=== PATIENT | male | born 1935 | race Caucasian/White ===

== ENCOUNTER 2016-06-26 10:02 | Outpatient (CLI) | payer MEDICARE ==
[2016-06-26 10:26] LABS: Bilirubin Negative (Negative); Blood, Urine Negative (Negative); Glucose, Urine (Dipstick) Negative (Negative); Ketone, Urine Negative (Negative); Nitrite Negative (Negative); Protein, Urine (Dipstick) Trace mg/dL (Neg-Trace); Urobilinogen 0.2 mg/dL (0.2-1.0)
[2016-06-26 10:32] LABS: #Basophils 0.1 thou/uL (0.0-0.2); #Eosinphils 0.1 thou/uL (0.0-0.7); #Lymphocytes 1.3 thou/uL (1.20-3.40); #Monocytes 0.6 thou/uL (0.11-0.59); #Neutrophils 2.8 thou/uL (1.40-6.50); %Basophils 1.4 % (0.0-1.0); %Eosinophils 2.4 % (0.0-10.0); %Monocytes 11.8 % (0.0-10.0); Bacteria/HPF None Seen HPF (None Seen); Hematocrit 40.2 % (42.0-52.0); Mean Platelet Volume 10.9 fL (7.4-10.4); RBC/HPF None Seen HPF (0-3); Red Blood Cell (RBC) Count 4.56 mill/uL (4.70-6.10); Squamous Epithelial 0-3 HPF (0-3); WBC/HPF None Seen HPF (0-3); White Blood Cell (WBC) Count 4.9 thou/uL (4.8-10.8)
[2016-06-26 11:08] LABS: Hemoglobin A1c 6.6 % (4.0-6.0)
[2016-06-26 11:23] LABS: ALT (SGPT) 17 U/L (0-55); AST (SGOT) 18 U/L (5-34); Alkaline Phosphatase 90 U/L (40-150); Anion Gap 14 mmol/L (10-20); BUN (Urea Nitrogen) 15 mg/dL (8.4-25.7); Bilirubin, Total 0.5 mg/dL (0.2-1.2); Calc. Creatinine Clearance 0 mL/min (70-130); Calcium 9.3 mg/dL (7.8-10.44); Carbon Dioxide 24 mmol/L (23-31); Chloride 106 mmol/L (98-107); Estimated GFR-MDRD 68; LDL Cholesterol, Calculated 43 mg/dL; Protein, Total 7.3 g/dL (5.8-8.1)
[2016-06-26 17:32] LABS: Iron 60 ug/dL (65-175)
[2016-06-26 17:51] LABS: Microalbumin Urine 4.6 mg/dL (0.5-50.0)
== END 2016-06-26 10:03 | disposition home or self-care (01) ==
LOC: BURLAB 10:02
PROVIDERS: ATTEND Internal Medicine
DX: D64.9 Anemia, unspecified (principal); E11.29 Type 2 diabetes mellitus with other diabetic kidney complication
CPT/HCPCS: 36415; 80053; 80061; 81001; 82043; 82728; 83036; 83540; 83550; 85025

== ENCOUNTER 2016-10-19 09:10 | Outpatient (CLI) | payer MEDICARE ==
[2016-10-19 10:12] LABS: ALT (SGPT) 18 U/L (8-55); AST (SGOT) 19 U/L (5-34); Albumin 4.2 g/dL (3.4-4.8); Alkaline Phosphatase 86 U/L (40-150); Anion Gap 14 mmol/L (10-20); BUN (Urea Nitrogen) 14 mg/dL (8.4-25.7); Bilirubin, Total 0.3 mg/dL (0.2-1.2); Calc. Creatinine Clearance 0 mL/min (70-130); Carbon Dioxide 26 mmol/L (23-31); Cardiac Risk 3.5 (Less than 4.5); Chloride 104 mmol/L (98-107); Cholesterol 104 mg/dl (< 200 Desired); Estimated GFR-MDRD 71; Glucose 155 mg/dL (83-110); HDL Cholesterol 30 mg/dL (>60 Neg Risk); Hemoglobin A1c 6.3 % (4.0-6.0); LDL Cholesterol, Calculated 47 mg/dL; Potassium 4.1 mmol/L (3.5-5.1); Protein, Total 7.2 g/dL (5.8-8.1); Sodium 140 mmol/L (136-145); Triglycerides 133 mg/dL (Less than 150)
[2016-10-19 18:51] LABS: Creatinine, Urine 76.68 mg/dL (63-166); Microalbumin Urine 8.4 mg/dL (0.5-50.0); Microalbumin/Creat Ratio 109.5 mg/g (Less than 30)
== END 2016-10-19 09:11 | disposition home or self-care (01) ==
LOC: BURLAB 09:10
PROVIDERS: ATTEND Internal Medicine
DX: E11.29 Type 2 diabetes mellitus with other diabetic kidney complication (principal); E78.5 Hyperlipidemia, unspecified
CPT/HCPCS: 36415; 80053; 80061; 82043; 83036

== ENCOUNTER 2020-09-16 14:21 | Emergency (ER) | payer MEDICARE ==
[2020-09-16] MEDS ORDERED: TETANUS, DIPHTHERIA TOX,ADULT (TDVAX) 0.5 ML VIAL IM ONE (15:06)
[2020-09-16] MEDS ORDERED: Ciprofloxacin 500 MG TAB ONE (15:06)
[2020-09-16] MEDS ORDERED: Bacitracin 1 PK ONE (15:11)
[2020-09-16] MEDS ORDERED: Ketorolac Tromethamine 30 MG/ML VIAL ONE (15:16)
== END 2020-09-16 15:22 | disposition home or self-care (01) ==
LOC: BURERS 14:21
DX: S91.331A Puncture wound without foreign body, right foot, initial encounter (principal); E11.9 Type 2 diabetes mellitus without complications; I10 Essential (primary) hypertension; Z79.899 Other long term (current) drug therapy; Z79.82 Long term (current) use of aspirin; Z79.84 Long term (current) use of oral hypoglycemic drugs; Z23 Encounter for immunization; W45.0XXA Nail entering through skin, initial encounter
CPT/HCPCS: 90471; 90714; 96372; J1885

== ENCOUNTER 2021-11-21 09:45 | Outpatient (CLI) | payer MEDICARE ==
[2021-11-21 10:08] LABS: #Basophils 0.1 thou/uL (0.0-0.2); #Eosinphils 0.1 thou/uL (0.0-0.7); #Lymphocytes 1.4 thou/uL (1.20-3.40); #Monocytes 0.4 thou/uL (0.11-0.59); #Neutrophils 2.5 thou/uL (1.40-6.50); %Basophils 1.7 % (0.0-1.0); %Neutrophils 55.3 % (42.0-75.0); Hemoglobin 12.7 g/dL (14.0-18.0); Mean Corpuscular HGB CONC 33.2 g/dL (32.0-36.0); Mean Corpuscular Hemoglobin 29.4 pg (27.0-31.0); Mean Corpuscular Volume 88.7 fL (78.0-98.0); Platelet Count 124 thou/uL (130-400); RBC Distribution Width 14.1 % (11.5-14.5); Red Blood Cell (RBC) Count 4.31 mill/uL (4.70-6.10); White Blood Cell (WBC) Count 4.4 thou/uL (4.8-10.8)
[2021-11-21 10:19] LABS: ALT (SGPT) 12 U/L (8-55); AST (SGOT) 15 U/L (5-34); Albumin 3.9 g/dL (3.4-4.8); Alkaline Phosphatase 86 U/L (40-110); Anion Gap 11 mmol/L (10-20); BUN (Urea Nitrogen) 16 mg/dL (8.4-25.7); Bilirubin, Total 0.4 mg/dL (0.2-1.2); Calc. Creatinine Clearance 0 mL/min (70-130); Calcium 9.4 mg/dL (7.8-10.44); Carbon Dioxide 29 mmol/L (23-31); Chloride 105 mmol/L (98-107); Cholesterol 95 mg/dl (< 200 Desired); Estimated GFR 63; Glucose 124 mg/dL (83-110); HDL Cholesterol 32 mg/dL (>60 Neg Risk); LDL Cholesterol, Calculated 47 mg/dL; Potassium 4.6 mmol/L (3.5-5.1); Protein, Total 6.9 g/dL (5.8-8.1); Sodium 140 mmol/L (136-145); Triglycerides 79 mg/dL (Less than 150)
[2021-11-21 17:19] LABS: Hemoglobin A1c 6.2 % (4.0-6.0)
[2021-11-21 17:37] LABS: Creatinine, Urine 110.36 mg/dL (63-166); Microalbumin Urine 7.2 mg/dL (0.5-50.0); Microalbumin/Creat Ratio 65.2 mg/g (Less than 30)
== END 2021-11-21 09:46 | disposition home or self-care (01) ==
LOC: BURLAB 09:45
PROVIDERS: ATTEND Internal Medicine
DX: E11.21 Type 2 diabetes mellitus with diabetic nephropathy (principal); E78.00 Pure hypercholesterolemia, unspecified; D64.9 Anemia, unspecified
CPT/HCPCS: 36415; 80053; 80061; 82043; 83036; 85025